=== PATIENT | male | born 1940 | race Caucasian/White ===

== ENCOUNTER 2018-06-18 11:58 | Emergency (ER) | payer MEDICARE, OTHER, MEDICAID ==
[2018-06-18 16:37] LABS: ADD MAN DIFF? NO
[2018-06-18 16:42] LABS: BASOPHILS % 0.2 % (0.0-2.0); EOSINOPHILS # 0.1 10^3/ul (0.0-0.5); EOSINOPHILS % 0.7 % (0.0-7.0); HEMATOCRIT 29.8 % (42.0-52.0); HEMOGLOBIN 9.2 g/dl (14.0-18.0); LYMPHOCYTES # 0.9 10^3/ul (0.8-2.9); LYMPHOCYTES % 10.4 % (15.0-51.0); MEAN CORPUSCULAR HEMOGLOBIN 25.3 pg (29.0-33.0); MEAN CORPUSCULAR HGB CONC 30.9 g/dl (32.0-37.0); MEAN CORPUSCULAR VOLUME 81.9 fl (82.0-101.0); MONOCYTE # 0.8 10^3/ul (0.3-0.9); MONOCYTES % 8.8 % (0.0-11.0); NEUTROPHIL # 7.2 10^3/ul (1.6-7.5); NEUTROPHILS % 79.5 % (39.0-77.0); PLATELET COUNT 147 10^3/UL (140-415); RED BLOOD COUNT 3.64 10^6/ul (4.70-6.10); RED CELL DISTRIBUTION WIDTH 16.6 % (11.5-14.5)
[2018-06-18 17:14] LABS: ALANINE AMINOTRANSFERASE 23 IU/L (13-69); ALBUMIN 3.3 g/dl (3.3-4.9); ALBUMIN/GLOBULIN RATIO 1.13; ALKALINE PHOSPHATASE 109 IU/L (42-121); ANION GAP 10 (5-13); ASPARTATE AMINO TRANSFERASE 21 IU/L (15-46); BILIRUBIN,INDIRECT 0.2 mg/dl (0-1.1); BILIRUBIN,TOTAL 0.2 mg/dl (0.2-1.3); BLOOD UREA NITROGEN 25 mg/dl (7-20); CALCIUM 8.6 mg/dl (8.4-10.2); CARBON DIOXIDE 22 mmol/L (21-31); CHLORIDE 108 mmol/L (97-110); CREATININE 3.39 mg/dl (0.61-1.24); GLUCOSE 127 mg/dl (70-220); POTASSIUM 4.4 mmol/L (3.5-5.1); SODIUM 140 mmol/L (135-144); TOTAL PROTEIN 6.2 g/dl (6.1-8.1)
[2018-06-18 17:22] LABS: ACETAMINOPHEN < 10.0 ug/ml (10.0-30.0); B-TYPE NATRIURETIC PEPTIDE 9920 PG/ML (0-450); ETHANOL < 10.0 mg/dl (0-0); SALICYLATE < 1.0 mg/dl (5.0-30.0)
[2018-06-18] MEDS: MELATONIN 3 MG TABLET PO (20:58)
[2018-06-18] MEDS: HALOPERIDOL 1 MG TAB PO (20:58)
== END 2018-06-18 22:13 | disposition short-term general hospital (02) ==
LOC: E/R 11:58
DX: I50.9 Heart failure, unspecified (principal); F68.10 Factitious disorder imposed on self, unspecified; D64.9 Anemia, unspecified; N18.9 Chronic kidney disease, unspecified; R41.82 Altered mental status, unspecified; Z79.4 Long term (current) use of insulin; Z79.82 Long term (current) use of aspirin
CPT/HCPCS: 70450; 71045; 80053; 80307; 83880; 85025; 93005; 99285-25